=== PATIENT | male | born 1955 ===

== ENCOUNTER 2025-05-21 06:45 | Day surgery (SDC) | payer BC ==
[2025-05-21] MEDS ORDERED: Lactated Ringers 1,000 ML IV ONE (06:46)
[2025-05-21] MEDS ORDERED: Propofol 200 MG/20 ML SDV IV ONE (06:46)
[2025-05-21] MEDS: Lactated Ringers 1,000 ML IV SCH (07:18)
[2025-05-21] MEDS ORDERED: Propofol 200 MG/20 ML SDV ONE (10:16)
== END 2025-05-21 10:22 | disposition home or self-care (01) ==
LOC: DL.ENDO 06:45
PROVIDERS: ATTEND Internal Medicine Gastroenterology
DX: Z12.11 Encounter for screening for malignant neoplasm of colon (principal); D12.0 Benign neoplasm of cecum; K64.8 Other hemorrhoids; K57.30 Diverticulosis of large intestine without perforation or abscess without bleeding; I10 Essential (primary) hypertension; E11.65 Type 2 diabetes mellitus with hyperglycemia; G47.33 Obstructive sleep apnea (adult) (pediatric); E78.00 Pure hypercholesterolemia, unspecified; E66.09 Other obesity due to excess calories; Z68.33 Body mass index [BMI] 33.0-33.9, adult; Z79.899 Other long term (current) drug therapy
CPT/HCPCS: 45385; J2704; J7120; S5010